=== PATIENT | male | born 1990 | race Caucasian/White ===

== ENCOUNTER 2020-12-04 09:07 | Emergency (ER) | payer OTHER ==
[~2020-12-04] VITALS: Ht 198.1 cm; Wt 97.5 kg
[2020-12-04] MEDS ORDERED: SEROPHENE50 MG PO (09:20)
[2020-12-04] MEDS ORDERED: CLONAZEPAM2 M1 PO (09:20)
== END 2020-12-04 15:55 | disposition home or self-care (01) ==
LOC: ER 09:07
DX: R10.31 Right lower quadrant pain (principal); E87.6 Hypokalemia; F31.89 Other bipolar disorder; Z03.818 Encounter for observation for suspected exposure to other biological agents ruled out